=== PATIENT | male | born 1935 | race Caucasian/White ===

== ENCOUNTER 2019-05-17 15:49 | Emergency (ER) | payer OTHER ==
[~2019-05-17] VITALS: Ht 175.3 cm; Wt 84.4 kg
[2019-05-17 17:37] LABS: ABSOLUTE NEUTROPHILS 9.4 thou/uL (1.4-8.2); BASOPHILS 0.3 % (0.0-2.0); EOSINOPHILS 0.1 % (0.0-3.0); HEMATOCRIT 39.1 % (42.0-52.0); HEMOGLOBIN 12.5 gm/dL (14.0-18.0); LYMPHOCYTES 6.2 % (24.0-44.0); MCH 29.9 pg (26.0-34.0); MCHC 31.9 g/dL (28.0-37.0); MCV 93.9 fL (80.0-100.0); PLATELET COUNT 238 thou/uL (150-400); POLYS 86.4 % (36.0-66.0); RBC 4.16 mil/uL (4.50-6.00); RDW 16.1 % (10.5-14.5); WBC 10.9 thou/uL (4.0-11.0)
[2019-05-17 17:43] LABS: ANION GAP 3 mmol/L (7-16); BUN 23 mg/dL (7-18); CALCIUM 8.4 mg/dL (8.5-10.1); CHLORIDE 105 mmol/L (98-107); CO2 32 mmol/L (21-32); GLUCOSE 130 mg/dL (74-106); POTASSIUM 4.4 mmol/L (3.5-5.1); SODIUM 140 mmol/L (136-145)
[2019-05-17 17:53] LABS: TROPONIN-I <0.06 ng/mL (<0.06)
[2019-05-17 19:28] VITALS: BP 149/74
--- NOTE | 2019-05-18 17:04 | EKG ---
[address] [address] ELECTROCARDIOGRAM REPORT Name: MADAN SANTANA HANNY Room [id number] Admission: 05/17/19 Attend Phys: Discharge: 05/17/19 Date of : 37 Report #: [id number] THIS REPORT FOR: //name// [facility] ED Test Date: 2019-05-17 Test Time: 17:29:12 Pat Name: MADAN SANTANA Department: Room: Gender: M Talent Sourcer: karan : 1935 Requested By: Wilian Huber Order Number: [id number] MD: Last Guillen Measurements Intervals Lucas Rate: 90 P: MN: QRS: 41 QRSD: 107 T: 25 QT: 398 QTc: 487 Interpretive Statements Atrial fibrillation Ventricular premature complex Abnormal R-wave progression, early transition Borderline prolonged QT interval No previous ECG available for comparison Electronically Signed On 05-18-2019 17:04:33 CDT by Last Guillen [email or web address] <ELECTRONICALLY SIGNED> By: Last Guillen MD, [facility] 05/18/19 1704 1729 1729 Last Guillen MD, FACC /EPI
== END 2019-05-17 19:28 | disposition home or self-care (01) ==
LOC: ER 15:49
PROVIDERS: Emergency Medicine
DX: S42.032A Displaced fracture of lateral end of left clavicle, initial encounter for closed fracture (principal); S01.81XA Laceration without foreign body of other part of head, initial encounter; S51.811A Laceration without foreign body of right forearm, initial encounter; S51.812A Laceration without foreign body of left forearm, initial encounter; I48.91 Unspecified atrial fibrillation; J44.9 Chronic obstructive pulmonary disease, unspecified; Z90.49 Acquired absence of other specified parts of digestive tract; Z88.0 Allergy status to penicillin; W18.39XA Other fall on same level, initial encounter; Y92.89 Other specified places as the place of occurrence of the external cause; Y93.89 Activity, other specified; Y99.8 Other external cause status